=== PATIENT | female | born 1990 ===

== ENCOUNTER 2017-06-10 18:56 | Emergency (ER) | payer OTHER ==
[~2017-06-10] VITALS: Ht 170.2 cm; Wt 110.9 kg
[2017-06-10 18:58] VITALS: TEMP 37.3; Ht 170.2 cm; Wt 110.9 kg
[2017-06-10] MEDS ORDERED: ACET-1311 PO (19:15)
[2017-06-10] MEDS ORDERED: IBUP-1050 PO (19:15)
[2017-06-10] MEDS ORDERED: LEVO1IUD2 IU (19:17)
[2017-06-10 19:23] VITALS: O2SAT 100
--- NOTE | 2017-06-10 19:27 | EMERGENCY ROOM VISIT NOTE ---
History Report prepared by Sue: Jackie Fitzgerald Under the Supervision of: Shannan MukherjeeO. First contact with patient: 19:03 Chief Complaint: NEURO SYMPTOMS Stated Complaint: NUMBNESS R SIDE OF FACE, PROGRESSING History of Present Illness The patient is a 26 year old female who presents to the Emergency Room with complaints of persistent right sided facial numbness which began about one day ago. She reports that she went to [facility] one day ago for persistent jaw pain and soreness. Today, she went to [facility] because she began experiencing numbness in her back teeth which radiated to her front teeth and eventually higher up on her face. They suggested she come to the Emergency Department for further evaluation. She states that she hasn't been able to feel herself swallowing on the right side. The patient states that her last menstrual period began at the beginning of May, noting that she has an IUD in place. Source of History: patient Onset: one day ago Position: other (right sided of her face) Quality: other (right facial numbness) Timing: other (persistent) Note: Associated symptoms include jaw pain Review of Systems See HPI for pertinent positives & negatives. A total of 10 systems reviewed and were otherwise negative. Past Medical & Surgical Medical Problems: (1) No Known Active Medical Problems No pertinent family history reported. Family History Diabetes mellitus FH: breast cancer Hypertension Social History Smoking Status: Never Smoker Smokeless Tobacco Use: No Alcohol Use: none Drug Use: none Marital Status: single Housing Status: lives with family Current/Historical Medications Scheduled Acetaminophen (Tylenol), 2 TAB PO PRN UD Ibuprofen (Advil), 400-600 MG PO Q6H Levonorgestrel (Iud) (Mirena), IU UD Allergies Coded Allergies: Amoxicillin (Verified Allergy, Severe, HIVES, 06/10/17) Physical Exam Vital Signs Date Time Temp Pulse Resp B/P (MAP) Pulse Ox O2 Delivery O2 Flow Rate FiO2 06/10/17 20:53 88 16 128/74 98 Room Air 06/10/17 20:05 76 16 131/77 99 Room Air 06/10/17 19:37 82 06/10/17 19:36 76 06/10/17 19:23 100 Room Air 06/10/17 19:23 100 Room Air 06/10/17 18:58 37.3 83 18 132/85 100 Room Air Physical Exam GENERAL: Patient is awake, alert, and in no acute distress. Patient is resting comfortably and showing no signs of anxiety EYES: The conjunctivae are clear. The pupils are round and reactive. EARS, NOSE, MOUTH AND THROAT: The nose is without any evidence of any deformity. Mucous membranes are moist tongue is midline NECK: The neck is nontender and supple. RESPIRATORY: Normal respiratory effort is noted there is no evidence of wheezing rhonchi or rales CARDIOVASCULAR: Regular rate and rhythm noted there no murmurs rubs or gallops normal S1 normal S2 GASTROINTESTINAL: The abdomen is soft. Bowel sounds are present in all quadrants. Abdomen is nontender MUSCULOSKELETAL/EXTREMITIES: There is no evidence of gross deformity full range of motion is noted in the hips and shoulders SKIN: There is no obvious evidence of any rash. There are no petechiae, pallor or cyanosis noted. NEUROLOGIC: Patient is awake alert and oriented x3 strength is symmetric patellar reflexes are 2+ bilaterally Medical Decision & Procedures ER Provider Diagnostic Interpretation: Radiology results as stated below per my review and radiologist interpretation: CHEST ONE VIEW PORTABLE CLINICAL HISTORY: EVALUATE ALTERED MENTAL STATUS/WEAKNESS dyspnea COMPARISON STUDY: No previous studies for comparison. FINDINGS: The bones soft tissues and hemidiaphragms are normal. The cardiomediastinal silhouette is normal. The lungs are clear. The pulmonary vasculature is normal. IMPRESSION: Negative chest. The above report was generated using voice recognition software. It may contain grammatical, syntax or spelling errors. Electronically signed by: Alessio May M.D. 06/10/2017 7:46 PM Dictated Date/Time: 06/10/2017 7:46 PM HEAD WITHOUT CONTRAST (CT) CT DOSE: 537.48 mGy.cm HISTORY: Mental status change EVALUATE ALTERED MENTAL STATUS/WEAKNESS TECHNIQUE: Multiaxial CT images of the head were performed without the use of intravenous contrast. A dose lowering technique was utilized adhering to the principles of ALARA. Comparison: None. Findings: The paranasal sinuses and mastoid air cells are clear. The calvarium and skull base are intact. The ventricles and sulci are within normal limits. There is no mass, hematoma, midline shift, or acute infarct. Impression: No acute intracranial abnormality. The above report was generated using voice recognition software. It may contain grammatical, syntax or spelling errors. Electronically signed by: Alessio May M.D. 06/10/2017 8:16 PM Dictated Date/Time: 06/10/2017 8:15 PM Laboratory Results 06/10/17 19:15 Red Blood Count 4.41, Mean Corpuscular Volume 91.2, Mean Corpuscular Hemoglobin 30.4, Mean Corpuscular Hemoglobin Concent 33.3, Mean Platelet Volume 9.7, Neutrophils (%) (Auto) 61.3, Lymphocytes (%) (Auto) 31.4, Monocytes (%) (Auto) 5.8, Eosinophils (%) (Auto) 1.0, Basophils (%) (Auto) 0.3, Neutrophils # (Auto) 6.55, Lymphocytes # (Auto) 3.36, Monocytes # (Auto) 0.62, Eosinophils # (Auto) 0.11, Basophils # (Auto) 0.03 06/10/17 19:15 Test 06/10/17 19:15 White Blood Count 10.69 K/uL (4.8-10.8) Red Blood Count 4.41 M/uL (4.2-5.4) Hemoglobin 13.4 g/dL (12.0-16.0) Hematocrit 40.2 % (37-47) Mean Corpuscular Volume 91.2 fL (80-100) Mean Corpuscular Hemoglobin 30.4 pg (25-34) Mean Corpuscular Hemoglobin Concent 33.3 g/dl (32-36) Platelet Count 246 K/uL (130-400) Mean Platelet Volume 9.7 fL (7.4-10.4) Neutrophils (%) (Auto) 61.3 % Lymphocytes (%) (Auto) 31.4 % Monocytes (%) (Auto) 5.8 % Eosinophils (%) (Auto) 1.0 % Basophils (%) (Auto) 0.3 % Neutrophils # (Auto) 6.55 K/uL (1.4-6.5) Lymphocytes # (Auto) 3.36 K/uL (1.2-3.4) Monocytes # (Auto) 0.62 K/uL (0.11-0.59) Eosinophils # (Auto) 0.11 K/uL (0-0.5) Basophils # (Auto) 0.03 K/uL (0-0.2) RDW Standard Deviation 41.5 fL (36.4-46.3) RDW Coefficient of Variation 12.4 % (11.5-14.5) Immature Granulocyte % (Auto) 0.2 % Immature Granulocyte # (Auto) 0.02 K/uL (0.00-0.02) Red Blood Cell Morphology Unremarkable Erythrocyte Sedimentation Rate 16 mm/hr (0-21) Prothrombin Time 10.3 SECONDS (9.0-12.0) Prothromb Time International Ratio 1.0 (0.9-1.1) Activated Partial Thromboplast Time 27.7 SECONDS (21.0-31.0) Partial Thromboplastin Ratio 1.1 Urine Color YELLOW Urine Appearance CLEAR (CLEAR) Urine pH 6.5 (4.5-7.5) Urine Specific [place] 1.022 (1.000-1.030) Urine Protein NEG (NEG) Urine Glucose (UA) NEG (NEG) Urine Ketones NEG (NEG) Urine Occult Blood NEG (NEG) Urine Nitrite NEG (NEG) Urine Bilirubin NEG (NEG) Urine Urobilinogen NEG (NEG) Urine Leukocyte Esterase NEG (NEG) Anion Gap 3.0 mmol/L (3-11) Est Creatinine Clear Calc Drug Dose 138.0 ml/min Estimated GFR () 118.8 Estimated GFR (Non- 102.5 BUN/Creatinine Ratio 17.9 (10-20) Calcium Level 8.7 mg/dl (8.5-10.1) Magnesium Level 2.0 mg/dl (1.8-2.4) Total Bilirubin 0.2 mg/dl (0.2-1) Direct Bilirubin < 0.1 mg/dl (0-0.2) Aspartate Amino Transf (AST/SGOT) 19 U/L (15-37) Alanine Aminotransferase (ALT/SGPT) 30 U/L (12-78) Alkaline Phosphatase 62 U/L (45-117) Troponin I 0.015 ng/ml (0-0.045) C-Reactive Protein < 0.29 mg/dl (0-0.29) Total Protein 8.5 gm/dl (6.4-8.2) Albumin 4.3 gm/dl (3.4-5.0) Thyroid Stimulating Hormone (TSH) 2.190 uIu/ml (0.300-4.500) Human Chorionic Gonadotropin, Qual NEG (NEG) Lyme Disease IgG Antibody NEG (NEG) Lyme Disease IgM Antibody NEG (NEG) Laboratory results per my review. ECG Per My Interpretation Indication: other (neuro symptoms) Rate (beats per minute): 75 Findings: no ectopy, other (No acute ST abnormalities) Comparison ECG Date: no prior available ED Course 1703: The patient was evaluated in room C6. A complete history and physical examination were performed. 2048: Upon reevaluation, the patient is resting. I discussed the results and treatment plan with her. She verbalized agreement of the treatment plan. The patient was discharged home. Medical Decision Prior records/ancillary studies reviewed and summarized above. Nursing notes reviewed. Additional history obtained from [facility] discharge paper. Differential diagnosis: Etiologies such as metabolic, infection, hypo/hyperglycemia, electrolyte abnormalities, cardiac sources, intracerebral event, toxicologic, neurologic, as well as others were entertained. The patient is a 26-year-old female who presented to the emergency department for an evaluation of right-sided facial numbness. She had no focal neurologic deficit. She did not appear to have any infection in her dentition. The patient was seen by [facility] and then seen by [facility]. She was sent to the emergency department for possible neurologic workup. The patient's noncontrast CT did not show any acute disease. I discussed patient's laboratory and radiographic studies with her. At this time I would recommend follow-up appointment with her primary care physician. I think she may require further neuro imaging such as MRI with and without contrast or possibly a referral to a neurologist. I also instructed her to return to the emergency department if symptoms change worsen or the need arises. Specifically if she develops any worsening neurologic symptoms or if she develops symptoms which would be more consistent with an infection. Medication Reconcilliation Current Medication List: was personally reviewed by me Blood Pressure Screening Patient's blood pressure: Normal blood pressure Blood pressure disposition: Did not require urgent referral Impression Primary Impression: Right facial numbness Scribe Attestation The scribe's documentation has been prepared under my direction and personally reviewed by me in its entirety. I confirm that the note above accurately reflects all work, treatment, procedures, and medical decision making performed by me. Departure Information Dispostion Home / Self-Care Referrals Melissa Rock, P.A. (PCP) Forms HOME CARE DOCUMENTATION FORM, IMPORTANT VISIT INFORMATION, WORK / SCHOOL INSTRUCTIONS Patient Instructions My [facility] Additional Instructions Continue all medications as prescribed. Call your family doctor to schedule a follow-up appointment. You may require further testing such as an MRI of the brain or possibly a referral to a neurologist if symptoms do not improve. Return to the emergency department immediately if symptoms change worsen or the need arises.
[2017-06-10 19:34] LABS: HEMATOCRIT 40.2 % (37-47); HEMOGLOBIN 13.4 g/dL (12.0-16.0); MEAN CELL VOLUME 91.2 fL (80-100); MEAN CORPUSCULAR HEMOGLOBIN 30.4 pg (25-34); MEAN CORPUSCULAR HGB CONC 33.3 g/dl (32-36); MEAN PLATELET VOLUME 9.7 fL (7.4-10.4); PLATELET COUNT 246 K/uL (130-400); RED CELL DISTRIBUTION WIDTH CV 12.4 % (11.5-14.5); RED CELL DISTRIBUTION WIDTH SD 41.5 fL (36.4-46.3); WHITE BLOOD COUNT 10.69 K/uL (4.8-10.8)
[2017-06-10 19:42] LABS: PTT PATIENT 27.7 SECONDS (21.0-31.0)
--- NOTE | 2017-06-10 19:48 | DIAGNOSTIC IMAGING REPORT ---
CHEST ONE VIEW PORTABLE CLINICAL HISTORY: EVALUATE ALTERED MENTAL STATUS/WEAKNESS dyspnea COMPARISON STUDY: No previous studies for comparison. FINDINGS: The bones soft tissues and hemidiaphragms are normal. The cardiomediastinal silhouette is normal. The lungs are clear. The pulmonary vasculature is normal. IMPRESSION: Negative chest. The above report was generated using voice recognition software. It may contain grammatical, syntax or spelling errors. Electronically signed by: Alessio May M.D. 06/10/2017 7:46 PM Dictated Date/Time: 06/10/2017 7:46 PM
[2017-06-10 19:52] LABS: ALBUMIN 4.3 gm/dl (3.4-5.0); ALT/SGPT 30 U/L (12-78); AST/SGOT 19 U/L (15-37); BLOOD UREA NITROGEN 14 mg/dl (7-18); CALCIUM 8.7 mg/dl (8.5-10.1); CARBON DIOXIDE 28 mmol/L (21-32); GLUCOSE 83 mg/dl (70-99); POTASSIUM 3.6 mmol/L (3.5-5.1); SODIUM 136 mmol/L (136-145)
[2017-06-10 20:01] LABS: ALKALINE PHOSPHATASE 62 U/L (45-117); TOTAL PROTEIN 8.5 gm/dl (6.4-8.2)
--- NOTE | 2017-06-10 20:17 | DIAGNOSTIC IMAGING REPORT ---
HEAD WITHOUT CONTRAST (CT) CT DOSE: 537.48 mGy.cm HISTORY: Mental status change EVALUATE ALTERED MENTAL STATUS/WEAKNESS TECHNIQUE: Multiaxial CT images of the head were performed without the use of intravenous contrast. A dose lowering technique was utilized adhering to the principles of ALARA. Comparison: None. Findings: The paranasal sinuses and mastoid air cells are clear. The calvarium and skull base are intact. The ventricles and sulci are within normal limits. There is no mass, hematoma, midline shift, or acute infarct. Impression: No acute intracranial abnormality. The above report was generated using voice recognition software. It may contain grammatical, syntax or spelling errors. Electronically signed by: Alessio May M.D. 06/10/2017 8:16 PM Dictated Date/Time: 06/10/2017 8:15 PM
[2017-06-10 20:18] LABS: BASO % 0.3 %; BASO ABS # 0.03 K/uL (0-0.2); EOS ABS # 0.11 K/uL (0-0.5); IG# 0.02 K/uL (0.00-0.02); LYMPH % 31.4 %; LYMPH ABS # 3.36 K/uL (1.2-3.4); MONO % 5.8 %; MONO ABS # 0.62 K/uL (0.11-0.59); NEUT % 61.3 %; NEUT ABS # 6.55 K/uL (1.4-6.5)
[2017-06-10 20:53] VITALS: BP 128/74; PULSE 88; O2SAT 98
== END 2017-06-10 21:00 | disposition home or self-care (01) ==
LOC: C.EDB 18:57 → C.EDC 21:00
DX: R20.0 Anesthesia of skin (principal); Z97.5 Presence of (intrauterine) contraceptive device; Z83.3 Family history of diabetes mellitus; Z80.3 Family history of malignant neoplasm of breast; Z82.49 Family history of ischemic heart disease and other diseases of the circulatory system; Z88.0 Allergy status to penicillin